=== PATIENT | female | born 1990 | race Caucasian/White ===

== ENCOUNTER → 2017-11-21 14:20 | Outpatient (CLI) | payer MEDICAID, SELFPAY ==
[2017-11-21 20:03] LABS: Chlamydia Trachomatis by PCR Negative (Negative); Neisserai gonorrhoeae by PCR Negative (Negative); Probe Check PASS; Sample Adequacy Control PASS; Specimen Processing Control PASS
[2017-11-26 15:37] LABS: HPV Reflexed? NOT INDICATED
== END ==
PROVIDERS: Visit Provider Obstetrics & Gynecology
DX: Z12.4 Encounter for screening for malignant neoplasm of cervix (principal); Z11.3 Encounter for screening for infections with a predominantly sexual mode of transmission; Z32.01 Encounter for pregnancy test, result positive
CPT/HCPCS: 87491; 87591; 88175; G0145

== ENCOUNTER → 2017-12-03 11:22 | Outpatient (CLI) | payer MEDICAID, SELFPAY ==
[2017-12-03 15:58] LABS: Absolute Lymphocyte Count 1.63 X10^3/ul (0.83-4.51); Absolute Neutrophil Count 6.7 X10^3/uL (2.0-7.7); Basophil# 0.01 X10^3/uL; Basophil% 0.1 % (0-1); Eosinophil# 0.05 X10^3/uL; Eosinophils% 0.6 % (0-5); Lymphocyte # 1.63 X10^3/ul (4.0); Lymphocyte % 18.4 % (19-41); Mean Corp Hgb Conc 32.5 g/gl (32-36); Mean Corpuscular Hgb 28.6 pg (27.0-32.0); Mean Corpuscular Volume 88.1 fL (81-99); Mean Platelet Vol. 10.2 fl (6.2-12.0); Monocyte# 0.47 X10^3/uL; Monocyte% 5.3 % (0-10); Neutrophil # 6.67 X10^3/uL (2.7-7.7); Neutrophil % 75.5 % (47-70); Platelet Count 283 K/mm3 (150-450); RBC Distribution Width CV 12.7 % (11.6-14.6); RBC Distribution Width SD 40.9 fl (35.1-43.9); Red Blood Count 4.54 M/mm3 (4.2-5.4); White Blood Count 8.8 K/mm3 (4.4-11.0)
[2017-12-03 15:59] LABS: Color, Urine Yellow (Yellow); Glucose, Dipstick Normal (Normal); Ketone-Dipstick 5 mg/dl (Negative); Leukocyte Esterase-Dipstick Negative /ul (Negative); Nitrite-Dipstick Negative (Negative); Occult Blood-Urine Negative /ul (Negative); Protein-Dipstick Negative (Negative); Urine Bilirubin Dipstick Negative (Negative); Urine Clarity Sl. Cloudy (Clear); Urine Urobilinogen Normal (Normal)
[2017-12-03 16:00] LABS: Thyroid Stim Hormone (TSH) 0.97 uIU/mL (0.358-3.74)
[2017-12-03 16:08] LABS: POSITIVE COUNT NO; POSITIVE DIFFERENTIAL NO; POSITIVE MORPHOLOGY NO
[2017-12-03 17:47] LABS: Amphetamine Urine VISTA NEGATIVE (<1000 ng/mL); Barbiturate Urine VISTA NEGATIVE (< 200 ng/mL); Benzodiazepine Urine VISTA NEGATIVE (< 200 ng/mL); Cocaine Urine VISTA NEGATIVE (< 300 ng/mL); Ecstacy Urine VISTA NEGATIVE (< 500 ng/mL); Methadone Urine VISTA NEGATIVE (< 300 ng/mL); PCP Urine VISTA NEGATIVE (< 25 ng/mL); THC Urine VISTA NEGATIVE (< 50 ng/mL); Vista UDS pH Range 5
[2017-12-03 18:49] LABS: COTININE Drug Screen Negative (<200 ng/mL)
[2017-12-04 12:07] LABS: HIV - WCH Non-Reactive (Nonreactive); Rubella IgG 59.1 IU/mL
[2017-12-05 15:42] LABS: HEPATITIS B SURFACE AG Negative (Negative); Hep C Antibodies <0.1 s/co ratio (0.0-0.9); V-Zoster IgG (Immunity) 139 index (Immune >165)
[2017-12-06 07:08] LABS: Prenatal RPR NONREACTIVE (NONREACTIVE)
== END ==
PROVIDERS: Visit Provider Obstetrics & Gynecology
DX: Z34.81 Encounter for supervision of other normal pregnancy, first trimester (principal)
CPT/HCPCS: 36415; 80307; 81002; 84443; 85025; 86703; 86762; 86787; 86803; 87340

== ENCOUNTER → 2018-04-01 15:05 | Outpatient (CLI) | payer MEDICAID, SELFPAY ==
[2018-04-01 16:04] LABS: Hematocrit 36.9 % (37-47); Hemoglobin 12.4 g/dl (12.0-15.0); Mean Corp Hgb Conc 33.6 g/gl (32-36); Mean Corpuscular Hgb 30.4 pg (27.0-32.0); Mean Corpuscular Volume 90.4 fL (81-99); Mean Platelet Vol. 10.7 fl (6.2-12.0); Platelet Count 282 K/mm3 (150-450); RBC Distribution Width CV 12.3 % (11.6-14.6); Red Blood Count 4.08 M/mm3 (4.2-5.4); White Blood Count 11.7 K/mm3 (4.4-11.0)
[2018-04-01 16:06] LABS: Scan Indicated on CBC? Y/N NO
[2018-04-01 16:23] LABS: Glucose Challenge Gest 1H 50g 101 mg/dL (70-140)
== END ==
PROVIDERS: Visit Provider Obstetrics & Gynecology
DX: Z34.83 Encounter for supervision of other normal pregnancy, third trimester (principal)
CPT/HCPCS: 36415; 82950; 85027

== ENCOUNTER → 2018-05-26 11:00 | Outpatient (CLI) | payer MEDICAID, SELFPAY ==
[2018-05-26 17:38] LABS: Group B Strep DNA By PCR Negative (Negative); Internal Control PASS; Probe Check PASS; Specimen Processing Control PASS
== END ==
PROVIDERS: Visit Provider Obstetrics & Gynecology
DX: Z36.85 Encounter for antenatal screening for Streptococcus B (principal)
CPT/HCPCS: 87081; 87653

== ENCOUNTER 2018-06-21 12:40 | Inpatient (IN) | payer MEDICAID, SELFPAY ==
[2018-06-21 12:58] VITALS: BMI 52.7
[2018-06-21] MEDS: Lactated Ringers 1,000 ML 50 ML IV ×2 (13:35→17:30)
[2018-06-21 13:58] LABS: Hematocrit 37.3 % (37-47); Hemoglobin 12.4 g/dl (12.0-15.0); Mean Corp Hgb Conc 33.2 g/gl (32-36); Mean Corpuscular Hgb 29.3 pg (27.0-32.0); Mean Corpuscular Volume 88.2 fL (81-99); Mean Platelet Vol. 11.3 fl (6.2-12.0); Platelet Count 234 K/mm3 (150-450); RBC Distribution Width CV 12.6 % (11.6-14.6); RBC Distribution Width SD 40.3 fl (35.1-43.9); Red Blood Count 4.23 M/mm3 (4.2-5.4); White Blood Count 10.7 K/mm3 (4.4-11.0)
[2018-06-21 14:01] LABS: Scan Indicated on CBC? Y/N NO
[2018-06-21] MEDS: Oxytocin 30 units/NS 500 ml 30 UNITS/500 ML IV.SOLN IV (14:11)
[2018-06-21] MEDS: fentaNYL-bupivacaine (epidural) 100 ML BAG EPIDURAL ×2 (16:55→21:10)
[2018-06-21] MEDS: Oxytocin 30 units/NS 500 ml 30 UNITS/500 ML IV.SOLN 334 UNITS IV (23:02)
--- NOTE | 2018-06-21 23:16 | PCM.OB.VAG ---
Vaginal Delivery Maternal Presentation: Elective Induction Admitted at [id number] [facility] for elective induction of labor. Method of Induction: Pitocin Amniotic Membrane Rupture Type: Artificial Rupture of Membrane time: 1500 Amniotic Fluid Description: Clear Final BILL: 06/23/18 Final BILL Source: US <20 weeks Gestational age: 39 Weeks and 5 Days Date of Procedure: 06/21/18 Pre-Operative Diagnosis: Labor Post-Operative Diagnosis: Same Surgery/ Procedure Performed: Spontaneous Vaginal Delivery Anesthesiologist: Haile Carrasquillo Type of Anesthesia: Epidural Description of Procedure: Brenna progressed to fully dilated, then pushed for about 3 contractions to bring the head to +3 station. Due to persistent heart rate decelearation decision was made to assist with a Kiwi vacuum device. The device was placed but with the next contraction the head delivered spontaneously without any pulling effort. The device was then removed. There was a loose cord wrapped around the body. After delivery the mouth was suctioned with a bulb suction. A cry occurred within the first minute. The baby was then placed on mom's chest for skin to skin. Delayed cord clamping was employed. The cord was then clamped and cut. Cord bloods were collected. Apgars were 8/9. The placenta was delivered spontaneously intact with a centrally located 3VC. The uterus contracted well. The cervix, upper/lower vagina and perineum were intact. Presentation: Vertex Placental Delivery Description: Spontaneous Placenta Disposition: [facility] Percentage of Placenta Abruption: 0 Cord Vessel Description: 3 Vessels Nuchal Cord Compression: Without compression Cord Entanglement: - - Around the body loose x 1 Drain: Luna to straight drain Estimated Blood Loss: 200cc Infant A gender: Female (1 minute): 8 (5 minute): 9 Episiotomy Description: None Laceration: None Medications given after delivery: IV Pitocin Complications: None
--- NOTE | 2018-06-21 23:21 | NURSING ---
kiwi applied to infant head but no pulls per Dr. Wahl applied
--- NOTE | 2018-06-21 23:24 | PCM.DCVAG ---
Discharge Diet: No Restrictions Discharge Activity: Return to Normal Activity, May Drive, May Shower Return to work on:: 08/18/18 May shower in (days): 0 May resume sexual activity in: 4 weeks Call your doctor if your incision/area has: Sudden Increased Bleeding, Increased Pain/ Swelling, Foul Smelling Discharge Call your doctor if you observe: Fever of 101 or Higher, Inability to urinate, Inability to have a bowel movement, Using more than one pad per hour, Shortness of breath, Chest pain, Calf discomfort, Uncontrolled pain Cleanse incision/area with: Soap & Water Additional Instructions: If you experience any of the following, contact your healthcare provider. Bleeding that soaks a pad every hour for 2 hours Fever 100.4 or higher Unrelieved incision or abdominal pain Swelling, redness, discharge or bleeding from your incision or episiotomy site Your incision begins to separate Problems urinating (including inability to urinate or burning while urinating). Visual changes Severe headache Flu-like symptoms Pain or redness in one of both of your breasts Pain, warmth, tenderness or swelling in your legs, especially the calf area Frequent nausea and vomiting Symptoms of depression or anxiety If you experience any of the following, call 911 or go to the nearest Emergency Room. Chest pain Problems breathing Seizure activity Partial or complete paralysis of a body part, slurred speech, weakness or drooping of the face, or a sudden inability to walk or hold your balance Allergies/Adverse Reactions: Allergies No Known Allergies Allergy (Verified 06/21/18 13:53) Medications to take at Discharge Paroxetine HCl [Paxil] 20 mg PO DAILY 01/09/17 Vit No.130/Iron/FA [ Tablet] 1 tablet PO DAILY 01/09/17 Ibuprofen 600 mg PO Q6H PRN PRN #30 tab 06/21/18 The following prescriptions were given: Ibuprofen 600 mg PO Q6H PRN PRN #30 tab PRN Reason: pain or cramping Please Follow Up With: Don Wahl MD When: 6 weeks Primary Care Physician: Care Physician,No Primary [Primary Care Provider] - Test Results: Test results from this visit will be discussed in further detail at your follow-up appointment, if applicable. Proposed Discharge Date: 06/23/18
[2018-06-21] MEDS: Oxytocin 30 units/NS 500 ml 30 UNITS/500 ML IV.SOLN 167 UNITS IV (23:32)
[2018-06-22] MEDS: 0.9% Saline Lock 10 ML Syringe IV (00:32)
--- NOTE | 2018-06-22 02:29 | NURSING ---
kathleen catheter removed @ 0220
[2018-06-22 04:45] VITALS: BP 136/75; PULSE 71; RESP 18; TEMP 36
[2018-06-22 06:33] LABS: Hematocrit 36.5 % (37-47); Hemoglobin 12.1 g/dl (12.0-15.0); Mean Corp Hgb Conc 33.2 g/gl (32-36); Mean Corpuscular Hgb 29.7 pg (27.0-32.0); Mean Corpuscular Volume 89.5 fL (81-99); Mean Platelet Vol. 11.4 fl (6.2-12.0); Platelet Count 219 K/mm3 (150-450); RBC Distribution Width CV 12.6 % (11.6-14.6); RBC Distribution Width SD 40.7 fl (35.1-43.9); Red Blood Count 4.08 M/mm3 (4.2-5.4); White Blood Count 11.2 K/mm3 (4.4-11.0)
[2018-06-22 06:36] LABS: Scan Indicated on CBC? Y/N NO
[2018-06-22 08:00] VITALS: BP 106/86; PULSE 86; RESP 16; TEMP 36.8
--- NOTE | 2018-06-22 08:20 | PCM.PN.OB ---
Subjective: No specific complaints. Bleeding light. Objective: Afeb VSS. Hgb stable - Physical Exam General: Alert, Oriented x3, Cooperative, No apparent distress Lungs: Clear to auscultation, Normal air movement Cardiovascular: Regular rate, Regular Rhythm Abdomen: - - Fundus nontender Extremities: No edema Skin: No rashes Neurological: Neuro grossly intact Psych/Mental Status: Normal Affect Comment: Lochia light Vital Signs Temp Pulse Resp BP 96.8 F L 71 18 136/75 H 06/22/18 04:45 06/22/18 04:45 06/22/18 04:45 06/22/18 04:45 Oxygen Delivery Method Room Air Weight: 326 lb 4.546 oz Body Mass Index (BMI) 52.7 Intake and Output for Last 24 Hours 06/20/18 06/21/18 06/22/18 23:59 23:59 23:59 Intake Total 1625 / 1625 2187 / 2187 Output Total 450 / 450 1900 / 1900 Balance 1175 / 1175 287 / 287 Laboratory Tests Past 24 Hrs 06/21/18 06/21/18 06/22/18 13:35 13:35 06:10 WBC 10.7 11.2 H RBC 4.23 4.08 L Hgb 12.4 12.1 Hct 37.3 36.5 L MCV 88.2 89.5 MCH 29.3 29.7 MCHC 33.2 33.2 RDW 12.6 12.6 RDW Differential 40.3 40.7 Plt Count 234 219 MPV 11.3 11.4 Blood Type O POSITIVE Antibody Screen NEGATIVE Medical Necessity - Tobacco Use Smoking Status: Former smoker Assessment/Plan Doing well on PP day#1. Continue routine PP care.
[2018-06-22] MEDS: Prenatal Vits Tablet 1 TABLET PO (08:31)
[2018-06-22 12:05] VITALS: BP 129/69; PULSE 72; RESP 16; TEMP 36.3
[2018-06-22 16:00] VITALS: BP 125/84; PULSE 73; RESP 16; TEMP 36.3
[2018-06-22 19:50] VITALS: BP 135/63; PULSE 78; RESP 18; TEMP 36.4; O2SAT 96
[2018-06-23 02:50] VITALS: BP 133/63; PULSE 64; RESP 18; TEMP 36.9; O2SAT 96
--- NOTE | 2018-06-23 07:19 | PCM.PN.OB ---
Subjective: No specific complaints. Bleeding light. Objective: Afeb VSS - Physical Exam General: Alert, Oriented x3, Cooperative, No apparent distress Lungs: Clear to auscultation, Normal air movement Cardiovascular: Regular rate, Regular Rhythm Abdomen: Soft, Non Tender, Non-Distended, - - Fundus nontender Extremities: No edema, No Calf Tenderness Skin: No rashes Neurological: Neuro grossly intact Psych/Mental Status: Normal Affect Comment: lochia light Vital Signs Temp Pulse Resp BP Pulse Ox 98.4 F 64 18 133/63 H 96 06/23/18 02:50 06/23/18 02:50 06/23/18 02:50 06/23/18 02:50 06/23/18 02:50 Oxygen Delivery Method Room Air Weight: 326 lb 4.546 oz Body Mass Index (BMI) 52.7 Intake and Output for Last 24 Hours 06/21/18 06/22/18 06/23/18 23:59 23:59 23:59 Intake Total 1625 / 1625 2187 / 2187 Output Total 450 / 450 2450 / 2450 Balance 1175 / 1175 -263 / -263 Medical Necessity - Tobacco Use Smoking Status: Former smoker Assessment/Plan Doing well on PP day#2. Cleared for discharge home today. Home going instructions and warnings given.
--- NOTE | 2018-06-23 07:20 | PCM.DC.SUM ---
Discharge Date and Diagnosis Date of Admission: 06/21/18 Date of Discharge: 06/23/18 - Primary Discharge Diagnosis S/P Hospital Course and Treatment Consultations 06/21/18 12:58 Consult: Anesthesia Routine Comment: Reason For Exam: labor Operations: None Procedures: - - Epidural, pitocin induction, Summary of Care Provided: The patient is a 27 year old F [admitted for elective induction of labor. Pitocin induction resulted in uncomplicated vaginal delivery of a live female . Post course unremarkable. Discharged home on PP day#2.] Discharge Diet: No Restrictions Discharge Activity: Return to Normal Activity, May Drive, May Shower Return to work on:: 08/18/18 May shower in (days): 0 May resume sexual activity in: 4 weeks Call your doctor if your incision/area has: Sudden Increased Bleeding, Increased Pain/ Swelling, Foul Smelling Discharge Call your doctor if you observe: Fever of 101 or Higher, Inability to urinate, Inability to have a bowel movement, Using more than one pad per hour, Shortness of breath, Chest pain, Calf discomfort, Uncontrolled pain Cleanse incision/area with: Soap & Water Home Medications: Medications to take at Discharge Paroxetine HCl [Paxil] 20 mg PO DAILY 01/09/17 Vit No.130/Iron/FA [ Tablet] 1 tablet PO DAILY 01/09/17 Ibuprofen 600 mg PO Q6H PRN PRN #30 tab 06/21/18 Following Prescrptions Were Given to Patient: Ibuprofen 600 mg PO Q6H PRN PRN #30 tab PRN Reason: pain or cramping Primary Care Physician: Care Physician,No Primary [Primary Care Provider] - Please Follow Up With: Don Wahl MD When: 6 weeks Disposition: Home Minutes spent on discharge:: 15 Patient Condition:: Good Medical Necessity - Tobacco Use Smoking Status: Former smoker Meaningful Use Info Meaningful Use Diagnoses (Choose all that apply): None applicable
[2018-06-23 07:47] VITALS: BP 136/65; PULSE 77; RESP 18; TEMP 36; O2SAT 98
[2018-06-23] MEDS: Prenatal Vits Tablet 1 TABLET PO (10:19)
[2018-06-23 12:15] VITALS: BP 135/76; PULSE 76; RESP 18; TEMP 35.9; O2SAT 98
== END 2018-06-23 12:45 | disposition home or self-care (01) | DRG 373 ==
PROVIDERS: Admitting Provider Obstetrics & Gynecology; Visit Provider Obstetrics & Gynecology
DX: O76 Abnormality in fetal heart rate and rhythm complicating labor and delivery (principal); O99.344 Other mental disorders complicating childbirth; F41.9 Anxiety disorder, unspecified; Z87.891 Personal history of nicotine dependence; Z3A.39 39 weeks gestation of pregnancy; Z37.0 Single live birth
CPT/HCPCS: 59025; 59050; 76815; 85027; 86850; 86900; 99218; J7120; A4216; G0378

== ENCOUNTER 2018-09-24 07:31 | Day surgery (SDC) | payer MEDICAID, SELFPAY ==
[2018-09-24 07:52] VITALS: BP 148/87; PULSE 73; RESP 16; TEMP 36.4; O2SAT 100; BMI 50.9
[2018-09-24 07:53] LABS: Internal QC Validated? YES +Cl - CLEAR BKGD; Pregnancy, Urine Negative Negative
[2018-09-24 08:02] LABS: Hematocrit 39.9 % (37-47); Hemoglobin 13.2 g/dl (12.0-15.0); Mean Corp Hgb Conc 33.1 g/gl (32-36); Mean Corpuscular Hgb 29.6 pg (27.0-32.0); Mean Corpuscular Volume 89.5 fL (81-99); Mean Platelet Vol. 10.3 fl (6.2-12.0); Platelet Count 269 K/mm3 (150-450); RBC Distribution Width CV 12.2 % (11.6-14.6); RBC Distribution Width SD 39.7 fl (35.1-43.9); Red Blood Count 4.46 M/mm3 (4.2-5.4); White Blood Count 6.9 K/mm3 (4.4-11.0)
[2018-09-24 08:06] LABS: Scan Indicated on CBC? Y/N NO
[2018-09-24 08:33] LABS: Pregnancy, Serum, hCG Quali. NEGATIVE Negative (0-9 Nonpreg); Prothrombin Time (Protime)PT. 13.5 SECONDS (11.7-14.9)
[2018-09-24 08:34] LABS: Partial Thromboplast Time 31.6 Seconds (24.1-36.2)
[2018-09-24 08:38] LABS: AST(SGOT) 11 U/L (15-37); Alanine Aminotransfer ALT/SGPT 20 U/L (13-56); Albumin, Serum 4.1 g/dL (3.2-5.0); Alkaline Phosphatase 66 U/L (45-117); Bilirubin, Direct 0.13 mg/dL (0.00-0.30); Globulin 3.3 g/dL (2.2-4.2); Protein, Total 7.4 g/dL (6.4-8.2)
--- NOTE | 2018-09-24 08:41 | DCINST_ITS ---
You will use the following diet at home:: No restrictions Discharge Activity: Return to Normal Activity, May Drive, May not drive while t aking narcotic pain medications., May Shower Return to work on:: 09/29/18 May resume sexual activity in: 2 weeks Call your doctor if your incision/area has: Sudden Increased Bleeding, Increased Pain/ Swelling, Increased Redness, Foul Smelling Discharge, Swelling at the incision site Call your doctor if you observe: Fever of 101 or Higher, Inability to urinate, Inability to have a bowel movement, Using more than one pad per hour, Shortness of breath, Chest pain, Calf discomfort, Uncontrolled pain Remove Dressing in (days):: 2 Cleanse incision/area with: Soap & Water Allergies/Adverse Reactions: Allergies No Known Allergies Allergy (Verified 09/16/18 15:29) Medications to take at Discharge Paroxetine HCl [Paxil] 20 mg PO DAILY 01/09/17 Ibuprofen 600 mg PO 4X/DAY #30 tab 09/24/18 The following prescriptions were given: Ibuprofen 600 mg PO 4X/DAY #30 tab Orders to be completed after discharge: Type & Screen Time Frame: 09/17/18, Location: None Selected Primary Care Physician: Care Physician,No Primary [Primary Care Provider] - Test Results: Test results from this visit will be discussed in further detail at your follow- up appointment, if applicable. Please Follow Up With: Don Wahl MD When: one week Proposed Discharge Date: 09/24/18
--- NOTE | 2018-09-24 08:41 | PCM.OPRPT ---
Report of Operation Date of Procedure: 09/24/18 Pre-Operative Diagnosis: Requests permanent sterilization Post-Operative Diagnosis: same Surgery/Procedure Performed:: Laparoscopic Bilateral Salpingectomy Description of Surgical Findings:: Normal appearing liver, gallbladder, and stomach. Normal appearing uterus, ovaries, and fallopian tubes. architectural drafter: Ayala Phillips Type of Anesthesia:: General Anesthesiologist: Vinod Alex Special Medications: none Specimen's removed: right and left fallopian tubes Drains: none Description of Procedure: Brenna was taken to the OR with IV running. She reconfirmed her desire for permanent sterilization prior to the case. She was given two grams of Cefotetan intravenously prior to the surgery. General anesthesia was introduced without complication. She was then prepped and draped in the dorsal lithotomy position. A red rubber catheter was used to drain the bladder. A uterine manipulator was placed. Attention was then directed to the abdomen. A 5mm vertical incision was made in the lower base of the umbilicus. The underlying subcutaneous tissue was bluntly dissected to the level of fascia with a Stephanie clamp. The abdominal wall was then elevated and a Veress needle was placed through the umbilical defect into the abdominal cavity. The abdomen was then inflated with CO2 gas to a pressure of 15 Torr. The Veress needle was removed and replaced with a 5mm laparoscopic trocar and sleeve. The trocar was removed and replaced with the laparoscope. A survey of the abdomen and pelvis was then performed. A second 5mm laparoscopic port was placed on the left side lateral to the inferior epigastric vessels at the level of the umbilicus. A laparoscopic alligator clamp was then placed in the midline usp between the umbilicus and the pubic symphysis. Attention was then directed to the left fallopian tube which was grasped at the fimbriated end, elevated and then mesosalpinx was dissected from the fimbriated end to the cornua of the uterus using the ligasure device. The tube was removed through the lateral port site. In a similar fashion the right fallopian tube was dissected and removed. Hemostasis was assured. The left port site was removed followed by the laparoscopic alligator grasper. The CO2 gas was evacuated and the umbilical port removed. The skin incisions were closed with 4-0 Monocryl suture. The incisions were then injected with 0.25% Marcaine. The uterine manipulator was removed. Sponge, needle, and instrument counts were correct. She was reversed from anesthesia without complication. Grafts/Implants Used: none - Complications none - Admit VTE Documentation VTE Present on Admission: No VTE Mechan Device Prophylaxis: SCD's VTE Pharm Prophylaxis ordered?: No Reason prophylaxis not ordered:: Treatment Not Indicated
--- NOTE | 2018-09-24 08:55 | FALS_PTH ---
PATIENT: JARRELL WADE LOC: [facility] U#:[id number] AGE/SX: 27/F ROOM: RE09/24/[address]: Dr. Don Wahl MD : 1990 BED: DIS: 09/24/2018 SPEC #: [id number] RECD: 09/24/18 11:01 STATUS: ABRIL ESTELLA #: [id number] TEODORO: 09/24/18 08:[address]: Don Wahl DEPT: SURGICAL PATHOLOGY RECD BY: César Redman ENTERED: 09/24/18 11:28 SP TYPE: FALL TUBES OTHR DR: No Primary Care Phys Tissues: Fallopian tube Procedures: Surgery Specimen Level II HEADER OPERATION: Laparoscopic bilateral salpingectomy PRE-OP DIAGNOSIS: Desires sterilization TISSUE SUBMITTED: Bilateral fallopian tubes MICROSCOPIC DIAGNOSIS Bilateral fallopian tubes, salpingectomy: Bilateral fallopian tubes including fimbrial ends, no pathologic diagnosis. SJ:eddy 12/13/18 MICROSCOPIC DESCRIPTION Slides are reviewed. GROSS DESCRIPTION Received is one container labeled with the patient's name and designated bilateral fallopian tubes. The specimen consists of bilateral fallopian tubes including fimbrial ends measuring 5.5 cm in length and 0.5 cm in diameter and 6 cm in length and 0.5 cm in diameter. Sections do not reveal any mass lesion. The fallopian tubes are not identified as right or left. Sections reveal unremarkable cut surfaces. Social Work Job Titles sections are submitted in two cassettes with each cassette containing one fallopian tube. / MICHAEL:eddy 09/24/18 TC:4 CPT: 34832 x2
--- NOTE | 2018-09-24 08:55 | OP.PCM_ITS ---
Report of Operation Date of Procedure: 09/24/18 Pre-Operative Diagnosis: Requests permanent sterilization Post-Operative Diagnosis: same Surgery/Procedure Performed:: Laparoscopic Bilateral Salpingectomy Description of Surgical Findings:: Normal appearing liver, gallbladder, and stomach. Normal appearing uterus, ovaries, and fallopian tubes. slide forming machine tender: Ayala Phillips Type of Anesthesia:: General Anesthesiologist: Vinod Alex Special Medications: none Specimen's removed: right and left fallopian tubes Drains: none Description of Procedure: Brenna was taken to the OR with IV running. She reconfirmed her desire for permanent sterilization prior to the case. She was given two grams of Cefotetan intravenously prior to the surgery. General anesthesia was introduced without complication. She was then prepped and draped in the dorsal lithotomy position. A red rubber catheter was used to drain the bladder. A uterine manipulator was placed. Attention was then directed to the abdomen. A 5mm vertical incision was made in the lower base of the umbilicus. The underlying subcutaneous tissue was bluntly dissected to the level of fascia with a Stephanie clamp. The abdominal wall was then elevated and a Veress needle was placed through the umbilical defect into the abdominal cavity. The abdomen was then inflated with CO2 gas to a pressure of 15 Torr. The Veress needle was removed and replaced with a 5mm laparoscopic trocar and sleeve. The trocar was removed and replaced with the laparoscope. A survey of the abdomen and pelvis was then performed. A second 5mm laparoscopic port was placed on the left side lateral to the inferior epigastric vessels at the level of the umbilicus. A laparoscopic alligator clamp was then placed in the midline snf between the umbilicus and the pubic symphysis. Attention was then directed to the left fallopian tube which was grasped at the fimbriated end, elevated and then mesosalpinx was dissected from the fimbriated end to the cornua of the uterus using the ligasure device. The tube was removed through the lateral port site. In a similar fashion the right fallopian tube was dissected and removed. Hemostasis was assured. The left port site was removed followed by the laparoscopic alligator grasper. The CO2 gas was evacuated and the umbilical port removed. The skin incisions were closed with 4-0 Monocryl suture. The incisions were then injected with 0.25% Marcaine. The uterine manipulator was removed. Sponge, needle, and instrument counts were correct. She was reversed from anesthesia without complication. Grafts/Implants Used: none - Complications none - Admit VTE Documentation VTE Present on Admission: No VTE Mechan Device Prophylaxis: SCD's VTE Pharm Prophylaxis ordered?: No Reason prophylaxis not ordered:: Treatment Not Indicated
[2018-09-24] MEDS: Bupivacaine 0.25% 30 ML Vial (09:32)
[2018-09-24 09:50] VITALS: BP 134/79; BP 148/87; PULSE 91; RESP 18; TEMP 37.2; O2SAT 100
[2018-09-24 10:00] VITALS: BP 126/92; BP 148/87; PULSE 82; RESP 16; O2SAT 100
[2018-09-24 10:15] VITALS: BP 121/68; BP 148/87; PULSE 76; RESP 16; O2SAT 100
[2018-09-24 10:31] VITALS: BP 148/87; PULSE 72; RESP 16; TEMP 36.9; O2SAT 100
[2018-09-24 10:49] VITALS: BP 148/87
--- OUTSIDE RECORDS SUMMARY | 2018-11-10 02:33 | XMS RPT_ITS ---
:1990 Author Organization [facility] Care Team Providers Name Role Phone Don Wahl Attending Unavailable SealsDon Referring Unavailable Primay Care Physicia, No Primary Care Unavailable Seals, Don Attending Unavailable Primay Care Physicia, No Primary Care Unavailable Seals, Don Attending Unavailable Primay Care Physicia, No Primary Care Unavailable Seals, Don Admitting Unavailable Seals, Don Attending Unavailable Seals, Don Referring Unavailable Primay Care Physicia, No Primary Care Unavailable Seals, Don Attending Unavailable Primay Care Physicia, No Primary Care Unavailable Seals, Don Attending Unavailable Seals, Don Referring Unavailable Primay Care Physicia, No Primary Care Unavailable PROBLEMS PROBLEMS DATE TYPE CONDITION / CODE ATTENDING STATUS SOURCE 05/26/2018 Unknown Z36.85 - Encounter Don Wahl Active [facility] for Community screening for Hospital Streptococcus B / Repository Z36.85(ICD-10) 04/01/2018 Unknown Z34.83 - Encounter Don Wahl for supervision of Community other normal Hospital , third Repository trimester / Z34.83(ICD-10) 12/03/2017 Unknown Z34.81 - Encounter Don Wahl Active [facility] for supervision of Community other normal Hospital , first Repository trimester / Z34.81(ICD-10) PROCEDURES PROCEDURES No Procedure Records FoundRESULTS RESULTS OPERATIVE REPORT Observed: 09/24/2018 Status: F Source: [place] 9:36 AM [facility] REPOSITORY [facility] Medical Records Department [address] [place] [address] Operative Report 09/24/18 0841 MR#: [id number] Acct: [id number] Name: BRENNA WADE Rep #: [id number] : 1990 27 From: Don Wahl MD PCP: Care Physician, No Primary Status: REG [facility] Y Location: [place] [address] Report of Operation Date of Procedure: 09/24/18 Pre-Operative Diagnosis: Requests permanent sterilization Post-Operative Diagnosis: same Surgery/Procedure Performed:: Laparoscopic Bilateral Salpingectomy Description of Surgical Findings:: Normal appearing liver, gallbladder, and stomach. Normal appearing uterus, ovaries, and fallopian tubes. shift commander: Ayala Phillips Type of Anesthesia:: General Anesthesiologist: Vinod Alex Special Medications: none Specimen's removed: right and left fallopian tubes Drains: none Description of Procedure: Brenna was taken to the OR with IV running. She reconfirmed her desire for permanent sterilization prior to the case. She was given two grams of Cefotetan intravenously prior to the surgery. General anesthesia was introduced without complication. She was then prepped and draped in the dorsal lithotomy position. A red rubber catheter was used to drain the bladder. A uterine manipulator was placed. Attention was then directed to the abdomen. A 5mm vertical incision was made in the lower base of the umbilicus. The underlying subcutaneous tissue was bluntly dissected to the level of fascia with a Stephanie clamp. The abdominal wall was then elevated and a Veress needle was placed through the umbilical defect into the abdominal cavity. The abdomen was then inflated with CO2 gas to a pressure of 15 Torr. The Veress needle was removed and replaced with a 5mm laparoscopic trocar and sleeve. The trocar was removed and replaced with the laparoscope. A survey of the abdomen and pelvis was then performed. A second 5mm laparoscopic port was placed on the left side lateral to the inferior epigastric vessels at the level of the umbilicus. A laparoscopic alligator clamp was then placed in the midline [facility] between the umbilicus and the pubic symphysis. Attention was then directed to the left fallopian tube which was grasped at the fimbriated end, elevated and then mesosalpinx was dissected from the fimbriated end to the cornua of the uterus using the ligasure device. The tube was removed through the lateral port site. In a similar fashion the right fallopian tube was dissected and removed. Hemostasis was assured. The left port site was removed followed by the laparoscopic alligator grasper. The CO2 gas was evacuated and the umbilical port removed. The skin incisions were closed with 4-0 Monocryl suture. The incisions were then injected with 0.25% Marcaine. The uterine manipulator was removed. Sponge, needle, and instrument counts were correct. She was reversed from anesthesia without complication. Grafts/Implants Used: none - Complications none - Admit VTE Documentation VTE Present on Admission: No VTE Mechan Device Prophylaxis: SCD's VTE Pharm Prophylaxis ordered?: No Reason prophylaxis not ordered:: Treatment Not Indicated 09/24/18 0936 <Electronically signed by Don Wahl MD> Date Don Wahl MD CC: No Primary Care Physician; Don Wahl MD Signed FALLOPIAN TUBES/STERILIZATION Observed: 09/24/2018 Status: F Source: [place] 8:55 AM [facility] REPOSITORY Patient: BRENNA WADE : 1990 (/) Acct Num: [id number] Phys: Don Wahl MD Unit Num: [id number] Loc: [facility] Specimen: [id number] Received: 09/24/181100 Spec Type: FALL TUBES TISSUES 1 TISSUES: Fallopian tube GROSS DESCRIPTION Received is one container labeled with the patient's name and designated bilateral fallopian tubes. The specimen consists of bilateral fallopian tubes including fimbrial ends measuring 5.5 cm in length and 0.5 cm in diameter and 6 cm in length and 0.5 cm in diameter. Sections do not reveal any mass lesion. The fallopian tubes are not identified as right or left. Sections reveal unremarkable cut surfaces. Semaphore Operator sections are submitted in two cassettes with each cassette containing one fallopian tube. / MICHAEL:eddy 09/24/18 TC:4 CPT: 30043 x2 HEADER OPERATION: Laparoscopic bilateral salpingectomy PRE-OP DIAGNOSIS: Desires sterilization TISSUE SUBMITTED: Bilateral fallopian tubes MICROSCOPIC DESCRIPTION Slides are reviewed. MICROSCOPIC DIAGNOSIS Bilateral fallopian tubes, salpingectomy: Bilateral fallopian tubes including fimbrial ends, no pathologic diagnosis. MICHAEL:eddy 09/25/18 Signed Kaushik Davalos 09/25/18 <signature on file> Performed By: #### PFALS #### [facility] [address] [facility] [place], [address] DISCHARGE INSTRUCTION Observed: 09/24/2018 Status: F Source: [place] 8:41 AM [facility] REPOSITORY [facility] Medical Records Department [address] [place] [address] Instructions for Home/Discharge Instructions 09/24/18 0839 MR#: [id number] Acct: [id number] Name: BRENNA WADE Rep #: [id number] : 1990 27 From: Don Wahl MD PCP: Care Physician, No Primary Status: REG [facility] You will use the following diet at home:: No restrictions Discharge Activity: Return to Normal Activity, May Drive, May not drive while taking narcotic pain medications., May Shower Return to work on:: 09/29/18 May resume sexual activity in: 2 weeks Call your doctor if your incision/area has: Sudden Increased Bleeding, Increased Pain/ Swelling, Increased Redness, Foul Smelling Discharge, Swelling at the incision site Call your doctor if you observe: Fever of 101 or Higher, Inability to urinate, Inability to have a bowel movement, Using more than one pad per hour, Shortness of breath, Chest pain, Calf discomfort, Uncontrolled pain Remove Dressing in (days):: 2 Cleanse incision/area with: Soap AND Water Allergies/Adverse Reactions: Allergies No Known Allergies Allergy (Verified 09/16/18 15:29) Medications to take at Discharge Paroxetine HCl [Paxil] 20 mg PO DAILY 01/09/17 Ibuprofen 600 mg PO 4X/DAY #30 tab 09/24/18 The following prescriptions were given: Ibuprofen 600 mg PO 4X/DAY #30 tab Orders to be completed after discharge: Type AND Screen Time Frame: 09/17/18, Location: None Selected Primary Care Physician: Care Physician,No Primary [Primary Care Provider] - Test Results: Test results from this visit will be discussed in further detail at your follow-up appointment, if applicable. Please Follow Up With: Don Wahl MD When: one week Proposed Discharge Date: 09/24/18 09/24/18 0841 <Electronically signed by Don Wahl MD> Date Don Wahl MD CC: No Primary Care Physician CBC-COMPLETE BLOOD CNT Collected: 09/24/2018 Status: F Source: [place] NO DIFF 7:50 AM [facility] REPOSITORY Order Comment: Reason for Laboratory Test preop TYPE CODE TESTS RESULT OUT OF RANGE REFERENCE UNITS LAB L100.1000 4.4-11.0 K/mm3 Normal WBC 6.9 LAB L100.1200 4.2-5.4 M/mm3 Normal RBC 4.46 LAB L100.1300 12.0-15.0 g/dl Normal HGB 13.2 LAB L100.1400 37-47 % Normal HCT 39.9 LAB L100.1500 81-99 fL Normal MCV 89.5 LAB L100.1600 27.0-32.0 pg Normal MCH 29.6 LAB L100.1700 32-36 g/gl Normal MCHC 33.1 LAB L100.1810 11.6-14.6 % Normal RDW CV 12.2 LAB L100.1820 35.1-43.9 fl Normal RDW SD 39.7 LAB L100.1900 150-450 K/mm3 Normal PLT 269 LAB L100.2000 6.2-12.0 fl Normal MPV 10.3 Performed By: #### L100.0500 #### [facility] [address] [facility] [place], [address] ,SERUM,HCG QUALI. Collected: Status: F Source: [place] 09/24/2018 7:50 AM [facility] REPOSITORY Order Comment: Reason for Laboratory Test preop TYPE CODE TESTS RESULT OUT OF REFERENCE UNITS RANGE LAB L700.7000 0-9 Nonpreg Negative Normal HCGSQUAL NEGATIVE LAB L700.6700 =>Qualitative mIU/mL Normal HCG Qual < 1 triggr Performed By: #### L700.6800 #### [facility] [address] [place] [address]. [place], [place], [id number] PROTHROMBIN TIME W/INR Collected: 09/24/2018 Status: F Source: [place] 7:50 AM [facility] REPOSITORY Order Comment: Reason for Laboratory Test preop TYPE CODE TESTS RESULT OUT OF RANGE REFERENCE UNITS LAB L300.4150 11.7-14.9 SECONDS Normal PROTIME 13.5 LAB L300.4200 Normal INR 1.0 Performed By: #### L300.3900, L300.4310 #### [facility] [facility] [place], [place], [id number] PARTIAL THROMBOPLAST Collected: 09/24/2018 Status: F Source: [place] TIME 7:50 AM [facility] REPOSITORY Order Comment: Reason for Laboratory Test preop TYPE CODE TESTS RESULT OUT OF RANGE REFERENCE UNITS LAB L300.4310 24.1-36.2 Seconds Normal PTT 31.6 Performed By: #### L300.3900, L300.4310 #### [facility] [facility] [place], [address] LIVER PROFILE Collected: 09/24/2018 Status: F Source: [place] 7:50 AM [facility] REPOSITORY Order Comment: Reason for Laboratory Test preop TYPE CODE TESTS RESULT OUT OF RANGE REFERENCE UNITS LAB L501.1500 6.4-8.2 g/dL Normal T PROT 7.4 LAB L501.1800 3.2-5.0 g/dL Normal ALB 4.1 LAB L501.1950 2.2-4.2 g/dL Normal GLOB 3.3 LAB L501.4100 15-37 U/L Low AST 11 LAB L501.4305 45-117 U/L Normal ALK P 66 LAB L501.4405 13-56 U/L Normal ALT 20 LAB L501.4600 0.20-1.00 mg/dL Normal T BILI 0.40 LAB L501.4700 0.00-0.30 mg/dL Normal D BILI 0.13 Performed By: #### L500.3400 #### [facility] [address] [place], [address] ,URINE Collected: 09/24/2018 Status: F Source: [place] 7:40 AM [facility] REPOSITORY Order Comment: Reason for Laboratory Test preop TYPE CODE TESTS RESULT OUT OF REFERENCE UNITS RANGE LAB L400.8000 Negative Normal HCGUQUAL Negative Result Comment: Very dilute urine specimens, as indicated by a low specific gravity, may not contain sales training representative levels of hCG. If is still suspected, a first morning urine specimen should be collected 48 hours later and tested. Performed By: #### L400.7600 #### [facility] [address] [facility] [place], [address] DISCHARGE SUMMARY Observed: 06/23/2018 Status: F Source: [place] 7:22 AM [facility] REPOSITORY [facility] Medical Records Department [address] [place] [address] Discharge Summary 06/23/18 0720 MR#: [id number] Acct: [id number] Name: BRENNA WADE Rep #: [id number] : 1990 27 From: Don Wahl MD PCP: Care Physician, No Primary Status: ADM IN Location: [id number] Discharge Date and Diagnosis Date of Admission: 06/21/18 Date of Discharge: 06/23/18 - Primary Discharge Diagnosis S/P Hospital Course and Treatment Consultations 09/08/18 12:58 Consult: Anesthesia Routine Comment: Reason For Exam: labor Operations: None Procedures: - - Epidural, pitocin induction, Summary of Care Provided: The patient is a 27 year old F [admitted for elective induction of labor. Pitocin induction resulted in uncomplicated vaginal delivery of a live female . Post course unremarkable. Discharged home on PP day#2.] Discharge Diet: No Restrictions Discharge Activity: Return to Normal Activity, May Drive, May Shower Return to work on:: 08/18/18 May shower in (days): 0 May resume sexual activity in: 4 weeks Call your doctor if your incision/area has: Sudden Increased Bleeding, Increased Pain/ Swelling, Foul Smelling Discharge Call your doctor if you observe: Fever of 101 or Higher, Inability to urinate, Inability to have a bowel movement, Using more than one pad per hour, Shortness of breath, Chest pain, Calf discomfort, Uncontrolled pain Cleanse incision/area with: Soap AND Water Home Medications: Medications to take at Discharge Paroxetine HCl [Paxil] 20 mg PO DAILY 01/09/17 Vit No.130/Iron/FA [ Tablet] 1 tablet PO DAILY 01/09/17 Ibuprofen 600 mg PO Q6H PRN PRN #30 tab 06/21/18 Following Prescrptions Were Given to Patient: Ibuprofen 600 mg PO Q6H PRN PRN #30 tab PRN Reason: pain or cramping Primary Care Physician: Care Physician,No Primary [Primary Care Provider] - Please Follow Up With: Don Wahl MD When: 6 weeks Disposition: Home Minutes spent on discharge:: 15 Patient Condition:: Good Medical Necessity - Tobacco Use Smoking Status: Former smoker Meaningful Use Info Meaningful Use Diagnoses (Choose all that apply): None applicable 06/23/18721 <Electronically signed by Don Wahl MD> Date Don Wahl MD Cosigner Signature (if applicable): Date CC: No Primary Care Physician; Don Wahl MD Signed CBC-COMPLETE BLOOD CNT Collected: 06/22/2018 Status: F Source: [place] NO DIFF 6:10 AM [facility] REPOSITORY Order Comment: Reason for Laboratory Test Day #1 TYPE CODE TESTS RESULT OUT OF RANGE REFERENCE UNITS LAB L100.1000 4.4-11.0 K/mm3 High WBC 11.2 LAB L100.1200 4.2-5.4 M/mm3 Low RBC 4.08 LAB L100.1300 12.0-15.0 g/dl Normal HGB 12.1 LAB L100.1400 37-47 % Low HCT 36.5 LAB L100.1500 81-99 fL Normal MCV 89.5 LAB L100.1600 27.0-32.0 pg Normal MCH 29.7 LAB L100.1700 32-36 g/gl Normal MCHC 33.2 LAB L100.1810 11.6-14.6 % Normal RDW CV 12.6 LAB L100.1820 35.1-43.9 fl Normal RDW SD 40.7 LAB L100.1900 150-450 K/mm3 Normal PLT 219 LAB L100.2000 6.2-12.0 fl Normal MPV 11.4 Performed By: #### L100.0500 #### [facility] [address] [facility] [place], [address] DISCHARGE INSTRUCTION Observed: 06/21/2018 Status: F Source: [place] 11:25 PM [facility] REPOSITORY [facility] Medical Records Department [address] [place] [address] Instructions for Home/Discharge Instructions 06/21/18 2324 MR#: [id number] Acct: [id number] Name: SHERIALEJANDROBRENNA E Rep #: [id number] : 1990 27 From: Don Wahl MD PCP: Care Physician, No Primary Status: ADM IN Discharge Diet: No Restrictions Discharge Activity: Return to Normal Activity, May Drive, May Shower Return to work on:: 08/18/18 May shower in (days): 0 May resume sexual activity in: 4 weeks Call your doctor if your incision/area has: Sudden Increased Bleeding, Increased Pain/ Swelling, Foul Smelling Discharge Call your doctor if you observe: Fever of 101 or Higher, Inability to urinate, Inability to have a bowel movement, Using more than one pad per hour, Shortness of breath, Chest pain, Calf discomfort, Uncontrolled pain Cleanse incision/area with: Soap AND Water Additional Instructions: If you experience any of the following, contact your healthcare provider. * Bleeding that soaks a pad every hour for 2 hours * Fever 100.4 or higher * Unrelieved incision or abdominal pain * Swelling, redness, discharge or bleeding from your incision or episiotomy site * Your incision begins to separate * Problems urinating (including inability to urinate or burning while urinating). * Visual changes * Severe headache * Flu-like symptoms * Pain or redness in one of both of your breasts * Pain, warmth, tenderness or swelling in your legs, especially the calf area * Frequent nausea and vomiting * Symptoms of depression or anxiety If you experience any of the following, call 911 or go to the nearest Emergency Room. * Chest pain * Problems breathing * Seizure activity * Partial or complete paralysis of a body part, slurred speech, weakness or drooping of the face, or a sudden inability to walk or hold your balance Allergies/Adverse Reactions: Allergies No Known Allergies Allergy (Verified 06/21/18 13:53) Medications to take at Discharge Paroxetine HCl [Paxil] 20 mg PO DAILY 01/09/17 Vit No.130/Iron/FA [ Tablet] 1 tablet PO DAILY 01/09/17 Ibuprofen 600 mg PO Q6H PRN PRN #30 tab 06/21/18 The following prescriptions were given: Ibuprofen 600 mg PO Q6H PRN PRN #30 tab PRN Reason: pain or cramping Please Follow Up With: Don Wahl MD When: 6 weeks Primary Care Physician: Care Physician,No Primary [Primary Care Provider] - Test Results: Test results from this visit will be discussed in further detail at your follow-up appointment, if applicable. Proposed Discharge Date: 06/23/18 06/21/18 3715 <Electronically signed by Don Wahl MD> Date Don Wahl MD CC: No Primary Care Physician OPERATIVE REPORT Observed: 06/21/2018 Status: F Source: [place] 11:24 PM [facility] REPOSITORY [facility] Medical Records Department [address] [place] [address] Operative Report 06/21/18 2316 MR#: [id number] Acct: [id number] Name: BRENNA WADE Rep #: [id number] : 1990 27 From: Don Wahl MD PCP: Care Physician, No Primary Status: ADM IN Location: [place] [address]-1 Vaginal Delivery Maternal Presentation: Elective Induction Admitted at 39w5d [facility] for elective induction of labor. Method of Induction: Pitocin Amniotic Membrane Rupture Type: Artificial Rupture of Membrane time: 1500 Amniotic Fluid Description: Clear Final BILL: 06/23/18 Final BILL Source: US <20 weeks Gestational age: 39 Weeks and 5 Days Date of Procedure: 06/21/18 Pre-Operative Diagnosis: Labor Post-Operative Diagnosis: Same Surgery/ Procedure Performed: Spontaneous Vaginal Delivery Anesthesiologist: Haile Carrasquillo Type of Anesthesia: Epidural Description of Procedure: Brenna progressed to fully dilated, then pushed for about 3 contractions to bring the head to +3 station. Due to persistent heart rate decelearation decision was made to assist with a Kiwi vacuum device. The device was placed but with the next contraction the head delivered spontaneously without any pulling effort. The device was then removed. There was a loose cord wrapped around the body. After delivery the mouth was suctioned with a bulb suction. A cry occurred within the first minute. The baby was then placed on mom's chest for skin to skin. Delayed cord clamping was employed. The cord was then clamped and cut. Cord bloods were collected. Apgars were 8/9. The placenta was delivered spontaneously intact with a centrally located 3VC. The uterus contracted well. The cervix, upper/lower vagina and perineum were intact. Presentation: Vertex Placental Delivery Description: Spontaneous Placenta Disposition: [facility] Percentage of Placenta Abruption: 0 Cord Vessel Description: 3 Vessels Nuchal Cord Compression: Without compression Cord Entanglement: - - Around the body loose x 1 Drain: Luna to straight drain Estimated Blood Loss: 200cc A gender: Female (1 minute): 8 (5 minute): 9 Episiotomy Description: None Laceration: None Medications given after delivery: IV Pitocin Complications: None 06/21/18 2324 <Electronically signed by Don Wahl MD> Date Don Wahl MD CC: No Primary Care Physician; Don Wahl MD Signed CBC-COMPLETE BLOOD CNT Collected: 06/21/2018 Status: F Source: [place] NO DIFF 1:35 PM [facility] REPOSITORY TYPE CODE TESTS RESULT OUT OF RANGE REFERENCE UNITS LAB L100.1000 4.4-11.0 K/mm3 Normal WBC 10.7 LAB L100.1200 4.2-5.4 M/mm3 Normal RBC 4.23 LAB L100.1300 12.0-15.0 g/dl Normal HGB 12.4 LAB L100.1400 37-47 % Normal HCT 37.3 LAB L100.1500 81-99 fL Normal MCV 88.2 LAB L100.1600 27.0-32.0 pg Normal MCH 29.3 LAB L100.1700 32-36 g/gl Normal MCHC 33.2 LAB L100.1810 11.6-14.6 % Normal RDW CV 12.6 LAB L100.1820 35.1-43.9 fl Normal RDW SD 40.3 LAB L100.1900 150-450 K/mm3 Normal PLT 234 LAB L100.2000 6.2-12.0 fl Normal MPV 11.3 Performed By: #### L100.0500 #### [facility] [address] [place], [place], [address] TYPE AND SCREEN Collected: 06/21/2018 Status: F Source: [place] 1:35 PM [facility] REPOSITORY Order Comment: Reason for Type AND Screen/Red Cells: ROUTINE TYPE CODE TESTS RESULT OUT OF RANGE REFERENCE UNITS LAB B10.0800 O Normal BLOOD TYPE GEL POSITIVE LAB B100.4000 Normal Antibody NEGATIVE Screen Performed By: #### B101.7450 #### [facility] [address] [place], [place], [address] GROUP B STREP DNA Collected: 05/26/2018 Status: F Source: [place] BY PCR 11:00 AM [facility] REPOSITORY Order Comment: Source: Vaginal-Rectal TYPE CODE TESTS RESULT OUT OF RANGE REFERENCE UNITS LAB L8200.0100 Negative Normal GBS TEST Negative RESULT Performed By: #### L8200.0000 #### [facility] [address] [facility] [place], [address] Observed: 05/26/2018 Status: F Source: [place] CULTURE, GROUP B 12:00 AM [facility] STREPTOCOCCUS REPOSITORY DINO Culture Group B Beta Streptococcus is not isolated. Performed By: #### M100.1800 #### [facility] [address] [facility] [place], [address] CBC-COMPLETE BLOOD CNT Collected: 04/01/2018 Status: F Source: [place] NO DIFF 3:15 PM [facility] REPOSITORY TYPE CODE TESTS RESULT OUT OF RANGE REFERENCE UNITS LAB L100.1000 4.4-11.0 K/mm3 High WBC 11.7 LAB L100.1200 4.2-5.4 M/mm3 Low RBC 4.08 LAB L100.1300 12.0-15.0 g/dl Normal HGB 12.4 LAB L100.1400 37-47 % Low HCT 36.9 LAB L100.1500 81-99 fL Normal MCV 90.4 LAB L100.1600 27.0-32.0 pg Normal MCH 30.4 LAB L100.1700 32-36 g/gl Normal MCHC 33.6 LAB L100.1810 11.6-14.6 % Normal RDW CV 12.3 LAB L100.1820 35.1-43.9 fl Normal RDW SD 40.0 LAB L100.1900 150-450 K/mm3 Normal PLT 282 LAB L100.2000 6.2-12.0 fl Normal MPV 10.7 Performed By: #### L100.0500 #### [facility] [address] [facility] [place], [address] GLUCOSE CHALLENGE GEST Collected: 04/01/2018 Status: F Source: [place] 1H 50G 3:15 PM [facility] REPOSITORY TYPE CODE TESTS RESULT OUT OF RANGE REFERENCE UNITS LAB L501.0250 70-140 mg/dL Normal GLU GEST 101 50g 1H Performed By: #### L501.0250 #### [facility] [address] [place], [address] URINE DRUG SCREEN Collected: 12/03/2017 Status: F Source: [place] (VISTA) 11:24 AM [facility] REPOSITORY Order Comment: Comments: UNK STATUS List of Drugs Taken or Suspected? UNK TYPE CODE TESTS RESULT OUT OF RANGE REFERENCE UNITS LAB L505.0075 TO BE Normal CONFIRMED Result Comment: CONFIRMATORY TESTING FOR ALL POSITIVE URINE DRUG SCREEN RESULTS WILL ONLY BE SENT OUT UPON PHYSICIAN ORDER. VISTA Urine Drug Screen methods provide only preliminary analytical test results. A more specific alternate chemical method must be used in order to obtain a confirmed analytical result. Gas chromatography/mass spectrometery (GC/MS) is the preferred confirmatory method. Clinical consideration and professional judgement should be applied to any drug of abuse test result, particularly when preliminary positive results are used. URINE TCA TESTING MUST BE ORDERED SEPARATELY. USE TEST MNEMONIC: [facility] LAB L505.5005 VISTA UDS PH 5 Normal LAB L505.5015 <1000 ng/mL AMPHETAMINES Normal NEGATIVE LAB L505.5025 < 200 ng/mL BARBITIURATES Normal NEGATIVE LAB L505.5035 < 200 ng/mL BENZODIAZIPINE Normal NEGATIVE LAB L505.5045 < 300 ng/mL COCAINE Normal NEGATIVE LAB L505.5055 < 500 ng/mL ECSTACY Normal NEGATIVE LAB L505.5065 < 300 ng/mL METHADONE Normal NEGATIVE LAB L505.5075 < 300 ng/mL OPIATES Normal NEGATIVE LAB L505.5085 < 25 ng/mL PCP Normal NEGATIVE LAB L505.5095 < 50 ng/mL THC Normal NEGATIVE Performed By: #### L505.5000, L505.6240 #### [facility] [address] [place], [address] NICOTINE URINE DRUG Collected: 12/03/2017 Status: F Source: [place] SCREEN 11:24 AM [facility] REPOSITORY Order Comment: Comments: UNK STATUS List of Drugs Taken or Suspected? UNK TYPE CODE TESTS RESULT OUT OF RANGE REFERENCE UNITS LAB L505.6250 TO BE Normal CONFIRMED Result Comment: CONFIRMATORY TESTING FOR ALL POSITIVE URINE DRUG SCREEN RESULTS WILL ONLY BE SENT OUT UPON PHYSICIAN ORDER. The results of Urine Drug Screen methods provide only preliminary analytical test results. A more specific alternate chemical method must be used in order to obtain a confirmed analytical result. Gas chromatography/mass spectrometery (GC/MS) is the preferred confirmatory method. Clinical consideration and professional judgement should be applied to any drug of abuse test result, particularly when preliminary positive results are used. LAB L505.6270 <200 ng/mL Normal COT DRG Negative SCREEN Result Comment: Cotinine is the first-stage metabolite of Nicotine. Performed By: #### L505.5000, L505.6240 #### [facility] [address] [place], [address] THYROID STIM HORMONE Collected: 12/03/2017 Status: F Source: [place] (TSH) 11:24 AM [facility] REPOSITORY TYPE CODE TESTS RESULT OUT OF RANGE REFERENCE UNITS LAB L501.9520 0.358-3.74 uIU/mL Normal TSH 0.97 Performed By: #### L501.9520 #### [facility] [address] [place], [address] CBC W/DIFF, AUTOMATED Collected: 12/03/2017 Status: F Source: [place] 11:24 AM [facility] REPOSITORY TYPE CODE TESTS RESULT OUT OF RANGE REFERENCE UNITS LAB L100.1000 4.4-11.0 K/mm3 Normal WBC 8.8 LAB L100.1200 4.2-5.4 M/mm3 Normal RBC 4.54 LAB L100.1300 12.0-15.0 g/dl Normal HGB 13.0 LAB L100.1400 37-47 % Normal HCT 40.0 LAB L100.1500 81-99 fL Normal MCV 88.1 LAB L100.1600 27.0-32.0 pg Normal MCH 28.6 LAB L100.1700 32-36 g/gl Normal MCHC 32.5 LAB L100.1810 11.6-14.6 % Normal RDW CV 12.7 LAB L100.1820 35.1-43.9 fl Normal RDW SD 40.9 LAB L100.1900 150-450 K/mm3 Normal PLT 283 LAB L100.2000 6.2-12.0 fl Normal MPV 10.2 LAB L100.2100 47-70 % High NEUT% 75.5 LAB L100.2200 19-41 % Low LY% 18.4 LAB L100.2300 0-10 % Normal MONO% 5.3 LAB L100.2400 0-5 % Normal EO% 0.6 LAB L100.2500 0-1 % Normal BASO% 0.1 LAB L100.2550 0.0-0.9 % Normal IM GRAN % 0.100 Result Comment: IG% - Immature Granulocytes (promyelocytes, myelocytes and metamyelocytes) > 1% indicates that a LEFT SHIFT is Present. LAB L100.2620 2.0-7.7 X10 3/uL Normal Absolute Neut 6.7 LAB L100.2720 0.83-4.51 X10 3/ul Normal Absolute Lymph 1.63 Performed By: #### L100.0100 #### [facility] [address] [facility] [place], [place], [id number] URINALYSIS, ROUTINE Collected: 12/03/2017 Status: F Source: [place]STIAN[place] (DIPSTICK) 11:24 AM [facility] REPOSITORY Order Comment: Comments: UNK STATUS How was Urine Obtained? Urine, Random TYPE CODE TESTS RESULT OUT OF RANGE REFERENCE UNITS LAB L400.3000 Yellow COLOR Normal Yellow LAB L400.3050 Clear Normal CLARITY Sl. Cloudy LAB L400.3200 Normal mg/dl Normal GLUCOSE, UR Normal LAB L400.3300 Negative mg/dL Normal BILIRUBIN URINE Negative LAB L400.3400 Negative mg/dl High 5 KETONE UR LAB L400.3465 1.002-1.030 Normal SP.GR. DIPSTX 1.010 LAB L400.3550 5.0 - 8.0 pH UR Normal 7.0 LAB L400.3600 Negative mg/dl PROT Normal DIPSTX Negative LAB L400.3700 Normal mg/dl Normal UROBILI Normal LAB L400.3750 Negative Normal NITRITE UR Negative LAB L400.3780 Negative /ul Normal OCCULT BLOOD-UR Negative LAB L400.3800 Negative /ul LEUK Normal ESTERASE Negative Performed By: #### L400.2010 #### [facility] [address] [place], [place], [id number] T AND S-NO Collected: 12/03/2017 Status: F Source: [place] CHARGE W/PNP 11:24 AM [facility] REPOSITORY Order Comment: Reason for Type AND Screen/Red Cells: Surgery? N TYPE CODE TESTS RESULT OUT OF RANGE REFERENCE UNITS LAB B10.0800 O Normal BLOOD POSITIVE TYPE GEL LAB B100.4050 Normal Ab SCREEN NEGATIVE GEL Performed By: #### B100.7550 #### [facility] [address] [place], [address] RUBELLA IGG Collected: 12/03/2017 Status: F Source: [place] 11:24 AM [facility] REPOSITORY Order Comment: Comments: UNK STATUS TYPE CODE TESTS RESULT OUT OF RANGE REFERENCE UNITS LAB L509.4000 IU/mL Normal Rubella IgG 59.1 Result Comment: Antibody results Interpretation of Immune Status < 5 IU/ml Presumed Non-immune 5 - < 10 IU/ml Equivocal > or = 10 IU/ml Presumed Immune Performed By: #### L509.4000, L3890.6005 #### [facility] [address] [place], [address] HIV - [facility] Collected: 12/03/2017 Status: F Source: [place] 11:24 AM [facility] REPOSITORY Order Comment: Comments: UNK STATUS TYPE CODE TESTS RESULT OUT OF RANGE REFERENCE UNITS LAB L3890.6005 Nonreactive Normal HIV - [facility] Non-Reactive Performed By: #### L509.4000, L3890.6005 #### [facility] [address] [place], [address] HEPATITIS B SURFACE Collected: 12/03/2017 Status: F Source: [place]RIST[place] AG 11:24 AM [facility] REPOSITORY Order Comment: Comments: UNK STATUS TYPE CODE TESTS RESULT OUT OF RANGE REFERENCE UNITS LAB L3100.0400 Negative Normal HB Negative SURF AG Result Comment: Performed at: [facility] [id number] Wired Sweatband Cutter: Isak Harrington PhD, Phone: [phone] Performed By: #### L3100.0390, L3100.0625, L3400.0000 #### [facility] (refer to report for specific site) refer to report for address and phone number HEPATITIS C ANTIBODIES Collected: 12/03/2017 Status: F Source: [place] 11:24 AM [facility] REPOSITORY Order Comment: Comments: UNK STATUS TYPE CODE TESTS RESULT OUT OF RANGE REFERENCE UNITS LAB L3100.0650 0.0-0.9 s/co ratio Normal HEP C AB <0.1 Result Comment: Negative: < 0.8 Indeterminate: 0.8 - 0.9 Positive: > 0.9 The CDC recommends that a positive HCV antibody result be followed up with a HCV Nucleic Acid Amplification test (741020). Performed By: #### L3100.0390, L3100.0625, L3400.0000 #### [facility] (refer to report for specific site) refer to report for address and phone number V-ZOSTER IGG Collected: 12/03/2017 Status: F Source: [place] (IMMUNITY) 11:24 AM [facility] REPOSITORY Order Comment: Comments: UNK STATUS TYPE CODE TESTS RESULT OUT OF RANGE REFERENCE UNITS LAB L3400.0000 Immune >165 index Low VZOST IgG 139 [address] Result Comment: A second sample should be collected and tested no less than 2-4 weeks. Negative <135 Equivocal 135 - 165 Positive >165 A positive result generally indicates exposure to the pathogen or administration of specific immunoglobulins, but it is not indication of active infection or stage of disease. Performed By: #### L3100.0390, L3100.0625, L3400.0000 #### [facility] (refer to report for specific site) refer to report for address and phone number RPR Collected: 12/03/2017 Status: F Source: [place] 11:24 AM [facility] REPOSITORY TYPE CODE TESTS RESULT OUT OF REFERENCE UNITS RANGE LAB L700.5100 NONREACTIVE Normal RPR NONREACTIVE Performed By: #### L700.5100 #### [facility] [address] [place], [address] CT/NG W[facility] BY PCR Collected: 11/21/2017 Status: F Source: [place] 10:30 AM [facility] REPOSITORY TYPE CODE TESTS RESULT OUT OF RANGE REFERENCE UNITS LAB L8200.2100 Negative Normal Chlam Negative Trac PCR LAB L8200.2200 Negative Normal NG by Negative PCR Performed By: #### L8200.2000 #### [facility] [address] 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 of containers..01 ThinPrep Vial TYPE CODE TESTS RESULT OUT OF RANGE REFERENCE UNITS LAB L7400.0800 . Normal DIAGN Comment Result Comment: NEGATIVE FOR INTRAEPITHELIAL LESION AND MALIGNANCY. LAB L7400.0900 . Normal ADEQ Comment Result Comment: Satisfactory for evaluation. Endocervical and/or squamous metaplastic cells (endocervical component) are present. LAB L7400.1400 . Normal PERFORM Comment Result Comment: Gopi Yañez, Avionics Mechanic (ASCP) LAB L7400.2575 . Normal TEST METHOD Comment Result Comment: This liquid based ThinPrep(R) pap test was screened with the use of an image guided system. LAB L7400.2600 . Normal . COMM LAB L7400.2700 . Normal PAPSMR Comment Result Comment: The Pap smear is a screening test designed to aid in the detection of premalignant and malignant conditions of the uterine cervix. It is not a diagnostic procedure and should not be used as the sole means of detecting cervical cancer. Both false-positive and false-negative reports do occur. LAB L7400.2800 . Normal HPV RFLX Comment Result Comment: The HPV DNA reflex criteria were not met with this specimen result therefore, no HPV testing was performed. Performed at: - [facility] [id number] Wired Sweatband Cutter: Manisha Baker MD, Phone: [phone] Performed By: #### L7400.0350 #### [facility] (refer to report for specific site) refer to report for address and phone number ALLERGIES ALLERGIES DATE TYPE / CODE NAME / CODE REACTION SEVERITY SOURCE 09/16/2018 Drug No Known Unknown [facility] Allergy/4160 Allergies/F00 [facility] 76395(SNOMED [id number](RXNOR Repository CT) M) ENCOUNTERS ENCOUNTERS ADMIT/DISCHARGE ACCOUNT ADMITTING ENCOUNTER LOCATION SOURCE NUMBER CLASS 09/24/2018/ [id number] Ambulatory [place] Christiane [address] [facility] ing:SDCRoom: Repository [id number] 06/21/2018/ [id number] Dno Wahl Inpatient [place]any Beth[place] [address] [facility] ing:WPRoom: Repository [id number]: 1 05/26/2018 [id number] Ambulatory Christiane Christiane [address] [facility] ing:LABSPEC Repository 04/01/2018 [id number] Ambulatory Christiane Christiane 6 [facility] ing:WOBLAB Repository 12/03/2017 [id number] Ambulatory [place]any Bethany [address] [facility] ing:WOBLAB Repository 11/21/2017 [id number] Ambulatory Christiane [place] [address] [facility] ing:LABSPEC Repository PAYERS PAYERS ENCOUNTER GUARANTOR PAYER SUBSCRIBER SOURCE 09/24/2018 BRENNA Donal LAMAS Primary Insurance:[facility] BRENNA E [place] [address] [facility] [place]ACKD[facility]: [place], [place] Number: [id number] Hospital [address]Sjv: 330 [id number] Repository [phone] () Date:[id number] [address]EO: 09/24/2018 Secondary NOT GIVENUNK [place] Insurance:SELF PAY [facility] Number: Effective Repository Date:2018-08-21 06/21/2018 BRENNA E [id number] Primary Insurance:[facility] BRENNA E Christiane S [address] [place] [address] MACKDOB: [place], [place] Number: [id number] Hospital [address]Qsm: 330 [id number] Repository [phone] () Date:[id number] [address]UC: 06/21/2018 Secondary NOT GIVENUNK Christiane Insurance:SELF PAY [facility] Number: Effective Repository Date:2018-05-26 05/26/2018 BRENNA LAMAS Primary Insurance:[facility] BRENNA E [place] [address] PLANPolicy MACKDOB[facility] [place] Number: [id number] Hospital [address]Jlk: 330 [id number] Repository [phone] (HP) Date:9440-13-09PA [address] [address]RL: 05/26/2018 Secondary NOT GIVENUNK Christiane Insurance:SELF PAY [facility] Number: Effective Repository Date:2018-05-26 04/01/2018 BRENNAOMER LAMAS S Primary Insurance:[facility] BRENNA SHERIDOB: [place] [address] [id number] [place] Number: Hospital [address]Ufh: ([id number] Repository [phone] (HP) Date:6559-90-18QR [address] [address]OS: 04/01/2018 Secondary NOT GIVENUNK [place] Insurance:SELF PAY [facility] Hospital Number: Effective Repository Date:2018-04-01 12/03/2017 BRENNAOMER LAMAS S Primary Insurance:[facility] BRENNA SHERIDOB: [place] [address] [id number] [place] Number: Hospital [address]Jug: [phone] [id number] Repository [phone] (HP) Date:1740-06-89VM [address] [address]NN: 12/03/2017 Secondary NOT GIVENUNK Christiane Insurance:SELF PAY [facility] Hospital Number: Effective Repository Date:2017-12-03 11/21/2017 BRENNAOMER LAMAS S Primary Insurance:[facility] BRENNA SHERIDOB: [place] [address] [facility] [id number] [place] Number: Hospital [address]Pzu: 330 [id number] Repository [phone] (HP) Date:[id number] [address] [address]YV: 11/21/2017 Secondary NOT GIVENUNK Christiane Insurance:SELF PAY [facility]: Effective Repository Date:2017-11-21
== END 2018-09-24 10:56 | disposition home or self-care (01) ==
LOC: SDC 07:32 → AC 07:33
PROVIDERS: Anesthesiology; Referring Provider Obstetrics & Gynecology; Visit Provider Obstetrics & Gynecology
PROC: (CPT 58661; principal; 2018-09-24 08:40)
DX: Z30.2 Encounter for sterilization (principal); F32.9 Major depressive disorder, single episode, unspecified; F41.0 Panic disorder [episodic paroxysmal anxiety]; E66.01 Morbid (severe) obesity due to excess calories; Z68.42 Body mass index [BMI] 45.0-49.9, adult; Z79.899 Other long term (current) drug therapy; Z87.891 Personal history of nicotine dependence
CPT/HCPCS: 58661; 36415; 80076; 81025; 84703; 85027; 85610; 85730; 88302; J7120; J2405